=== PATIENT | male | born 1955 | race Caucasian/White ===

== ENCOUNTER 2017-05-27 17:37 | Emergency (ER) | payer SELFPAY ==
[~2017-05-27] VITALS: Ht 177.8 cm; Wt 99.3 kg
[~2017-05-27 17:37] MED LIST: ALBU8I INH; BENA25TA5 PO; PRIL20CA PO; ZOLO100T PO; ZOLP10TA3 PO
[2017-05-27 17:41] VITALS: BP 183/94; PULSE 52; RESP 16; TEMP 98.1; O2SAT 97
[2017-05-27] MEDS ORDERED: ZOLO25TA PO (18:18)
[2017-05-27] MEDS ORDERED: VENTAER INH (18:18)
[2017-05-27] MEDS ORDERED: IBUP200T PO (18:18)
[2017-05-27] MEDS ORDERED: LORA-392 PO (18:18)
[2017-05-27] MEDS ORDERED: OMEP2.5S (18:18)
[2017-05-27] MEDS ORDERED: AMBI5TAB PO (18:18)
[2017-05-27] MEDS ORDERED: SYMB80AE INH (18:18)
[2017-05-27] MEDS ORDERED: LISI2.5T3 PO (18:18)
[2017-05-27] MEDS ORDERED: LORazepam 2 MG TAB PO ONE (18:30)
[2017-05-27] MEDS ORDERED: CHLO25CA9 PO ×2 (18:38→18:40)
--- NOTE | 2017-05-27 18:38 | PD ---
HPI Chief Complaint: Anxiety Time Seen by Provider: 18:00 Travel History International Travel<30 days: No Contact w/Intl Traveler<30days: No Traveled to known affect area: No History of Present Illness HPI Patient is a fairly pleasant 61-year-old male presents with his sister whom he lives with for evaluation of anxiety and alcohol withdrawal. History is obtained in tandem from both him and his sister. Apparently the patient has a history of fairly heavy alcohol abuse in the past which is been supplemented with Ativan use occasionally. The patient is currently coping with the loss of his girlfriend in February and has been on binges intermittently of alcohol and benzodiazepines. Sister is concerned because she found him drinking heavily the other day and he hasn't had anything since in his been having some tremors. No altered mental status no fever has been reported. Patient states he feels well, he states is only having 1 or 2 beers intermittently. PFSH Past Medical History Asthma: Yes Anxiety: Yes Cancer: Yes (PROSTATE, SKIN) Cardiovascular Problems: Yes (MITRAL VALVE PROLAPSE) COPD: Yes Cerebrovascular Accident: Yes (TIA) Diabetes: Yes Patient Takes Glucophage: No Diminished Hearing: No GERD: Yes Hiatal Hernia: Yes Hypertension: Yes Musculoskeletal: Yes (L ROTATOR CUFF - NO SURGERY ) Respiratory: Yes (ASTHMA) Seizures: Yes (PT STATES DUE TO ALCOHOL AND ATIVAN WITHDRAW) Tetanus Vaccination: > 5 Years Influenza Vaccination: Yes (STATES APPROXIMATELY 3 YEARS AGO. ) Past Surgical History Cardiac Surgery: Yes (MVR, PACEMAKER INSERTION) Genitourinary Surgery: Yes (PROSTATECTOMY ) Pacemaker: Yes Thoracic Surgery: Yes Tonsillectomy: Yes Other Surgery: Yes Social History Alcohol Use: Yes (DRINKS LARGE QUANTIES DAILY - LIQUOR) Tobacco Use: No Substance Use: Yes (HX : MARIJUANA. HX : COCAINE USE ) Allergies-Medications (Allergen,Severity, Reaction): Coded Allergies: Sulfa (Sulfonamide Antibiotics) (Verified Allergy, Severe, 05/27/17) doxycycline (Verified Allergy, Severe, 05/27/17) oyster extract (Verified Allergy, Severe, 05/27/17) Reported Meds & Prescriptions Reported Meds & Active Scripts Active Chlordiazepoxide HCl 25 Mg Capsule 25 Mg PO DIRECTED 50mg PO TID for day 1-2 25mg PO TID for day 3-6 25mg PO BID for day 7-9 25mg PO daily for day 10-11 Reported Ibuprofen Pm (Ibuprofen-Diphenhydramine) 200-38 Mg Tab Unknown Dose PO HS PRN Symbicort Inh (Budesonide/Formoterol Fumarate) 80-4.5 Mcg/Act Aero Unknown Dose INH Q12HR Ventolin Hfa 18 GM Inh (Albuterol Sulfate) 90 Mcg/Act Aer Unknown Dose INH Q4H PRN Ambien (Zolpidem Tartrate) 5 Mg Tab Unknown Dose PO HS PRN Prilosec (Omeprazole Magnesium) 2.5 Mg Pow Unknown Dose Lisinopril 2.5 Mg Tab Unknown Dose PO DAILY Ativan (Lorazepam) 0.5 Mg Tab Unknown Dose PO DAILY PRN Zoloft (Sertraline HCl) 25 Mg Tab Unknown Dose PO DAILY Review of Systems Except as stated in HPI: all other systems reviewed are Neg Physical Exam Narrative GENERAL: [Well-developed well-nourished in no obvious distress SKIN: Focused skin assessment warm/dry. HEAD: Atraumatic. Normocephalic. EYES: Pupils equal and round. No scleral icterus. No injection or drainage. ENT: No nasal bleeding or discharge. Mucous membranes pink and moist. NECK: Trachea midline. No JVD. CARDIOVASCULAR: Regular rate and rhythm. No murmur appreciated. RESPIRATORY: No accessory muscle use. Clear to auscultation. Breath sounds equal bilaterally. GASTROINTESTINAL: Abdomen soft, non-tender, nondistended. Hepatic and splenic margins not palpable. MUSCULOSKELETAL: No obvious deformities. No clubbing. No cyanosis. No edema. NEUROLOGICAL: Awake and alert. No obvious cranial nerve deficits. Motor grossly within normal limits. Normal speech. Only a minimal tremor is observed. He is alert and awake and oriented. PSYCHIATRIC: Appropriate mood and affect; insight and judgment normal. Data Data Last Documented VS Vital Signs Date Time Temp Pulse Resp B/P (MAP) Pulse Ox O2 Delivery O2 Flow Rate FiO2 05/27/17 17:41 98.1 52 16 183/94 (123) 97 Orders Orders Lorazepam (Ativan) (05/27/17 18:30) Ed Discharge Order (05/27/17 18:38) MDM Medical Decision Making Medical Screen Exam Complete: Yes Emergency Medical Condition: Yes Differential Diagnosis Alcoholism, mild alcohol withdrawal, benzodiazepine withdrawal, adjustment disorder. Narrative Course Patient counseled at length, currently I think he is a good candidate for Librium withdrawal protocol to taper has been written for him. Discussed with him and his sister at length that he needs to follow up with [facility] her Alcoholics Anonymous. They're agreeable to this time. Also extremity conversation about him being on his last chance with her and I discussed with him that he needs to take this seriously do his best to get sober. Discussed return to ED criteria and symptomatic management home Diagnosis Primary Impression: Alcohol withdrawal Qualified Codes: F10.239 - Alcohol dependence with withdrawal, unspecified Additional Impression: Alcoholism Referrals: [facility]Other Pt SpecificInfo: Prescription(s) given Scripts Chlordiazepoxide HCl (Chlordiazepoxide HCl) 25 Mg Capsule 25 MG PO DIRECTED, #29 TAB 0 Refills 50mg PO TID for day 1-2 25mg PO TID for day 3-6 25mg PO BID for day 7-9 25mg PO daily for day 10-11 Prov: Los Garcia MD 05/27/17 Disposition: 01 DISCHARGE HOME Condition: Stable Los Garcia MD May 27, 2017 18:38
== END 2017-05-27 19:11 | disposition home or self-care (01) ==
LOC: PHEFT 17:37
DX: F10.239 Alcohol dependence with withdrawal, unspecified (principal)
CPT/HCPCS: 99283

== ENCOUNTER 2017-07-24 14:28 | Emergency (ER) | payer OTHER ==
[~2017-07-24] VITALS: Ht 177.8 cm; Wt 105.0 kg
[~2017-07-24 14:28] MED LIST changes: -ALBU8I INH; +AMBI5TAB PO; -BENA25TA5 PO; +CHLO25CA9 PO; +IBUP200T PO; +LISI2.5T3 PO; +LORA-392 PO; +OMEP2.5S; -PRIL20CA PO; +SYMB80AE INH; +VENTAER INH; -ZOLO100T PO; +ZOLO25TA PO; -ZOLP10TA3 PO
[2017-07-24 14:42] VITALS: BP 154/103; PULSE 101; RESP 23; TEMP 97.9; O2SAT 96
[2017-07-24] MEDS ORDERED: MORPHINE SULFATE 4 MG/ML INJ IM ONE (14:45)
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
[2017-07-24 16:13] VITALS: BP 162/82; PULSE 95; RESP 18; O2SAT 98
== END 2017-07-24 16:26 ==
LOC: NEPE 14:28
DX: T14.8XXA Other injury of unspecified body region, initial encounter (principal); M54.9 Dorsalgia, unspecified; J44.9 Chronic obstructive pulmonary disease, unspecified; E11.9 Type 2 diabetes mellitus without complications; I10 Essential (primary) hypertension; K21.9 Gastro-esophageal reflux disease without esophagitis; F12.90 Cannabis use, unspecified, uncomplicated; F14.90 Cocaine use, unspecified, uncomplicated; V49.49XA Driver injured in collision with other motor vehicles in traffic accident, initial encounter; Y92.410 Unspecified street and highway as the place of occurrence of the external cause; Z95.0 Presence of cardiac pacemaker; Z88.2 Allergy status to sulfonamides
CPT/HCPCS: 70450; 71045; 71120; 72072; 72100; 72125; 96372; 99285; J2270

== ENCOUNTER 2017-07-28 13:16 | Emergency (ER) | payer SELFPAY | END 2017-07-28 15:10 | disposition home or self-care (01) | LOC: PHED 13:16 | DX: F10.129 Alcohol abuse with intoxication, unspecified (principal); J44.9 Chronic obstructive pulmonary disease, unspecified; I10 Essential (primary) hypertension; E11.9 Type 2 diabetes mellitus without complications; K21.9 Gastro-esophageal reflux disease without esophagitis; F41.9 Anxiety disorder, unspecified; Z86.73 Personal history of transient ischemic attack (TIA), and cerebral infarction without residual deficits; Z85.46 Personal history of malignant neoplasm of prostate; Z85.828 Personal history of other malignant neoplasm of skin; Z95.0 Presence of cardiac pacemaker; Z88.2 Allergy status to sulfonamides; Z79.899 Other long term (current) drug therapy | CPT/HCPCS: 99283 ==

== ENCOUNTER 2017-10-15 16:38 | Emergency (ER) | payer OTHER ==
[~2017-10-15] VITALS: Ht 182.9 cm; Wt 100.0 kg
[2017-10-15] VITALS (7 sets, daily range): BP systolic 130–140; BP diastolic 69–95; PULSE 86–126; RESP 18–22; TEMP 98.5–98.6; O2SAT 95–98
[~2017-10-15 16:38] MED LIST changes: -CHLO25CA9 PO; -IBUP200T PO; -LISI2.5T3 PO; -LORA-392 PO
[2017-10-15] MEDS ORDERED: CLON0.1T PO (16:59)
[2017-10-15] MEDS ORDERED: SODIUM CHLORIDE 0.9% FLUSH 10 ML FLUSH IVF PRN (17:00)
[2017-10-15] MEDS ORDERED: ONDANSETRON HCL 4 MG/2 ML VIAL IV PUSH ONE (17:00)
[2017-10-15] MEDS ORDERED: LORazepam 2 MG/ML VIAL IV PUSH ONE ×2 (17:00→19:00)
[2017-10-15] MEDS ORDERED: SODIUM CHLOR 0.9% 1000 ML INJ 1,000 ML IV ONE ×2 (17:00→19:00)
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
[2017-10-15 17:28] LABS: AUTOMATED NEUTROPHIL # 7.7 TH/MM3 (1.8-7.7); BASOPHIL % 0.4 % (0.0-2.0); EOSINOPHIL # 0.1 TH/MM3 (0-0.4); HEMATOCRIT 50.6 % (39.0-51.0); HEMOGLOBIN 17.4 GM/DL (13.0-17.0); LYMPH % 10.7 % (9.0-44.0); MEAN CELL VOLUME 89.7 FL (80.0-100.0); MEAN CORPUSCULAR HEMOGLOBIN 30.8 PG (27.0-34.0); MEAN CORPUSCULAR HGB CONC 34.3 % (32.0-36.0); MEAN PLATELET VOLUME 7.1 FL (7.0-11.0); MONO % 7.9 % (0.0-8.0); MONOCYTE # 0.8 TH/MM3 (0-0.9); PLATELET COUNT 377 TH/MM3 (150-450); RED BLOOD COUNT 5.64 MIL/MM3 (4.50-5.90); RED CELL DISTRIBUTION WIDTH 14.2 % (11.6-17.2); WHITE BLOOD COUNT 9.6 TH/MM3 (4.0-11.0)
[2017-10-15 17:42] LABS: INTERNATIONAL NORMALIZED RATIO 1.1 RATIO; PROTHROMBIN TIME - PATIENT 10.9 SEC (9.8-11.6)
[2017-10-15 17:50] LABS: ALBUMIN 3.9 GM/DL (3.4-5.0); AST (GOT) 193 U/L (15-37); BICARBONATE 20.9 MEQ/L (21.0-32.0); BLOOD UREA NITROGEN 6 MG/DL (7-18); CALCIUM 9.1 MG/DL (8.5-10.1); CHLORIDE 101 MEQ/L (98-107); CREATININE 1.09 MG/DL (0.60-1.30); GLOMERULAR FILTRATION RATE 68 ML/MIN (>89); GLUCOSE,RANDOM 104 MG/DL (74-106); MAGNESIUM 2.1 MG/DL (1.5-2.5); SODIUM (NA) 136 MEQ/L (136-145)
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
[2017-10-15 17:56] LABS: ALKALINE PHOSPHATASE 177 U/L (45-117); ALT (GPT) 147 U/L (12-78); TOTAL BILIRUBIN ADULT 0.6 MG/DL (0.2-1.0); TOTAL PROTEIN 8.3 GM/DL (6.4-8.2); TROPONIN I 0.02 NG/ML (0.02-0.05)
[2017-10-15] MEDS ORDERED: FLUMAZENIL 0.5 MG/5 ML VIAL IV PUSH PRN (19:00)
[2017-10-15] MEDS ORDERED: LORazepam 2 MG TAB PO PRN (19:00)
[2017-10-15] MEDS ORDERED: ONDANSETRON HCL 4 MG/2 ML VIAL IV PUSH PRN (19:00)
[2017-10-15] MEDS ORDERED: LORazepam 2 MG/ML VIAL IV PUSH PRN ×4 (19:00)
[2017-10-15] MEDS ORDERED: ACETAMINOPHEN 325 MG TAB PO PRN (19:00)
[2017-10-15] MEDS ORDERED: LORazepam 1 MG TAB PO PRN (19:00)
[2017-10-15] MEDS ORDERED: IOHEXOL 350 MG/ML 10 ML VIAL (for RAD DIAG) IVCONTRAST ONE (20:52)
--- NOTE | 2017-10-15 21:16 | RADRPT ---
EXAM DATE/TIME: 10/15/2017 20:37 [facility] COMPARISON: No previous studies available for comparison. INDICATIONS : Chest pain. IV CONTRAST: 75 cc Omnipaque 350 (iohexol) IV RADIATION DOSE: 22.91 CTDIvol (mGy) MEDICAL HISTORY : Cardiovascular disease. Hypertension. Carcinoma, prostate.CVA. COPD. Skin cancer. SURGICAL HISTORY : Pacemaker. ENCOUNTER: Initial ACUITY: 1 day PAIN SCALE: 7/10 LOCATION: chest TECHNIQUE: Volumetric scanning of the chest was performed using a pulmonary embolism protocol MIP images were re constructed. Using automated exposure control and adjustment of the mA and/or kV according to patien t size, radiation dose was kept as low as reasonably achievable to obtain optimal diagnostic quality images. DICOM format image data is available electronically for review and comparison. Follow-up recommendations for detected pulmonary nodules are based at a minimum on nodule size and pa tient risk factors according to Fleischner Society Guidelines. FINDINGS: No filling defects to suggest pulmonary embolic disease. Postop median sternotomy with mitral valve a nnuloplasty. Pacer leads in right atrium and right ventricle. Clip noted in atrial appendage. There is subsegmental atelectasis or scarring at the lung bases. No effusion. Upper abdomen reveals f atty liver. No acute findings. CONCLUSION: 1. Negative for pulmonary embolus. Basal atelectasis or scarring. German Guan MD on October 15, 2017 at 21:08 Board Certified Radiologist. This report was verified electronically.
[2017-10-15] MEDS ORDERED: METOPROLOL TARTRATE 5 MG/5 ML VIAL IV PUSH ONE (21:30)
[2017-10-15] MEDS ORDERED: chlordiazePOXIDE 25 MG CAP PO ONE (22:30)
[2017-10-15] MEDS ORDERED: IBUPROFEN 600 MG TAB PO ONE (22:30)
[2017-10-16] MEDS ORDERED: chlordiazePOXIDE 25 MG CAP PO PRN ×3 (00:45→05:30)
[2017-10-16] MEDS ORDERED: LORazepam 2 MG/ML VIAL IV PUSH ONE (00:45)
[2017-10-16 03:53] VITALS: BP 163/91; PULSE 101; RESP 18; O2SAT 97
[2017-10-16] MEDS ORDERED: CHLO25CA9 PO (05:29)
--- NOTE | 2017-10-16 19:57 | EKG ---
Date Performed: 10/15/2017 Time Performed: 17:16:08 PTAGE: 62 years EKG: ELECTRONIC VENTRICULAR PACEMAKER Compared to previous tracing, the rhythm appears to be mos tly paced. The underlying rhythm is unclear. There also appears to be PVCs. Recommend repeat EKG at a slower HR and probably pacemaker interrogation ABNORMAL RHYTHM ECG PREVIOUS TRACING : 02/02/2016 13.29 DOCTOR: Valdemar Casarez Interpretating Date/Time 10/16/2017 19:56:13
== END 2017-10-16 06:20 | disposition home or self-care (01) ==
LOC: NEPE 16:38
DX: F10.239 Alcohol dependence with withdrawal, unspecified (principal); R07.9 Chest pain, unspecified; R11.0 Nausea; R06.02 Shortness of breath; R25.1 Tremor, unspecified; R94.31 Abnormal electrocardiogram [ECG] [EKG]; F43.10 Post-traumatic stress disorder, unspecified; Z95.0 Presence of cardiac pacemaker; Z79.899 Other long term (current) drug therapy
CPT/HCPCS: 71045; 71275; 80053; 80307; 82550; 83690; 83735; 84484; 85025; 85610; 85730; 93005; 96361; 96374; 96375; 96376; 99285; J2060; J2405; J7030; Q9967

== ENCOUNTER 2018-03-02 13:45 | Observation (INO) ==
--- NOTE | 2018-03-02 14:21 | ED ---
HPI General Chief Complaint: Fall Stated Complaint: Fall Time Seen by Provider: 03/02/18 14:03 Source: patient Mode of arrival: ambulatory Limitations: no limitations History of Present Illness HPI Narrative: 62-year-old male presents to the emergency room for evaluation of headache, shoulder pain, and back pain after mechanical fall just prior to arrival. Patient states he was walking up the stairs to his apartment when the stairs broke and he fell backwards 2 steps. States he just lost his balance but he did not fall down. He slammed his left shoulder against the wall and was able to stay upright. Patient states his left shoulder is chronically in pain from a rotator cuff injury several years ago. States this is an exacerbation of the same pain. Pain is worsened with range of motion or when he pushes on the area. Improves at rest. He may have also hit his head. He denies loss of consciousness. States he continued up the stairs and went to his house and drink 2 alcoholic beverages to help ease the pain. He then called 911. Patient arrived in C-spine immobilization on a backboard. He denies any upper or lower extremity paresthesias, saddle anesthesia, loss of bowel or bladder control. Denies any chest pain or any other injuries. Patient is not the best historian and he has alcohol on his breath. MD complaint: fall Onset (ago): hour(s) Fall from: down stairs (#) (2) Fall witnessed: no Place fall occurred: home Loss of consciousness: none Prolonged down time: no Symptoms prior to fall: none Context: tripped/slipped Location of injury: head and back Location of injury - extremities: Left: shoulder Severity: moderate Quality: aching Associated symptoms (after fall): headache and neck pain Related Data Home Medications Medication Instructions Recorded Confirmed clonidine HCl 0.1 mg PO TID 02/04/18 03/02/18 sertraline [Zoloft] 100 mg PO DAILY 02/04/18 03/02/18 zolpidem [Ambien] 10 mg PO HS 02/04/18 03/02/18 Allergies Allergy/AdvReac Type Severity Reaction Status Date / Time doxycycline Allergy Severe Vomiting Verified 03/02/18 20:25 oyster extract Allergy Severe Vomiting Verified 03/02/18 20:25 Sulfa (Sulfonamide Allergy Severe Difficulty Verified 03/02/18 20:25 Antibiotics) Breathing Review of Systems ROS: all other systems reviewed are negative PMF Family History Family History Mother Lung cancer Father Stomach cancer Social History Social History Substance History: No History of Abuse Second Hand Smoke Exposure: No Smoking Status: Unknown if ever smoked How Often Do You Have a Drink Containing Alcohol: 2 to 3 times a week Recent Travel in [facility] within the Last 8 Weeks: No Recent Out of Country Travel within the Last 8 Weeks: No Exam Narrative Exam Narrative: GENERAL: Well-nourished, well-developed male in no acute distress. Afebrile. Ambulatory. Smell of alcohol on his breath. SKIN: Focused skin assessment warm/dry. HEAD: Normocephalic. EYES: No scleral icterus. No injection or drainage. NECK: Supple, trachea midline. No JVD or lymphadenopathy. No midline tenderness. Full range of motion. CARDIOVASCULAR: Regular rate and rhythm without murmurs, gallops, or rubs. RESPIRATORY: Breath sounds equal bilaterally. No accessory muscle use. MUSCULOSKELETAL: No cyanosis, or edema. BACK: Mild midline tenderness of the upper back. No obvious deformity. No CVA tenderness. NEUROLOGICAL: Awake and alert. Cranial nerves II through XII intact. Motor and sensory grossly within normal limits. Five out of 5 muscle strength in all muscle groups. Normal speech. Course Initial Documented Vital Signs Temperature 98.3 F 03/02/18 14:02 Pulse Rate 118 H 03/02/18 14:02 Respiratory Rate 19 03/02/18 14:02 Blood Pressure 156/94 H 03/02/18 14:02 Pulse Oximetry 94 L 03/02/18 14:02 Last Documented Vital Signs Temperature 98.1 F 03/02/18 16:19 Pulse Rate 99 H 03/03/18 00:00 Respiratory Rate 20 03/03/18 00:00 Blood Pressure 141/75 H 03/03/18 00:00 Pulse Oximetry 97 03/03/18 00:00 Sign Out Sign Out Data: Patient Sign Out occurred on 03/02/18 at 20:15. Patient's care was discussed, and care was transferred from JOVANY Kendall to Patricia Browning DO. Sign Out Comment: pending labs, patient likely be admitted. Last updated by Alice Mendez PA at 03/02/18 19:09 Post-Handoff Eval: Please see my RAKESH attestation for further details. Medical Decision Making RAKESH Attestation RAKESH supervised visit: Yes Attestation: I, Dr. Browning, have reviewed the advance practice practitioner's documentation and am in agreement, met with the patient face to face, made the diagnosis, and the medical decision making was done by me. *My assessment and Findings: ICH vs. fracture vs. contusion vs. alcohol withdrawal vs. anxiety 62yo M with chronic alcohol abuse here with c/o left shoulder pain and head pain s/p fall today. Said he was walking up stairs and the step broke and he fell. Said he did have some alcohol today, cannot remember the details. Pt has left rotator cuff tear before. Denies any focal weakness or numbness. Has chronic left knee pain since July and denies it before worst than normal. It is mildly warm to touch but good range of motion in left knee. Pt was tachycardic and mildly tremulous so given ativan 1mg IV. Pt reevaluated at bedside and is still tachycardic at 117bpm and mildly tremulous in bilateral upper extremities and has some tongue fasciculations. Labs ordered and pt given NS IVF and second dose of ativan 1mg IV. Pt did hit his head and had questionable LOC. CT brain showed no acute process. Xray left shoulder showed degenerative changes, no fracture. At around 5:55pm, pt was noted to be tachycardic in the 200s with pulse oximetry so placed pt on cardiac monitoring. Then pt's heart rate went down on its own and was bradycardic and then normal. EKG was obtained and showed paced rhythm at 112bpm. No concordance. Pt complaining of dizziness. Said he had mitrol valve repair and pace maker. [employer] is Dr. Clemons. Pacemaker by [employer] was implanted by Dr. Clemons in 2015 but unable to review old records. [employer] called to interrogate pacemaker. Given pt's persistent dizziness and arrhythmia, will observe patient. [employer] came to evaluate the patient and said that it is his [place] beats that is tachycardic and that the pace maker will go up to 130. Said that they did not see any tachycardia in the 200s but our monitor may have picked up atrial beats and double counted it. Labs reviewed, no leukocytosis. H/H normal. BMP unremarkable. Blood alcohol mildly elevated at 163. CXR negative. Pt reevaluated at bedside and HR is in the low 100s. Still have headache and dizziness. Ordered toradol. Pt still with dizziness and mild tachycardia after 2 doses of IV ativan and NS IVF so will observe for alcohol withdrawal. Pt has had alcohol withdrawal seizures before. MDM Narrative Medical decision making narrative: 62-year-old chronic alcoholic presents to the emergency room for evaluation of mechanical fall that occurred just prior to arrival. Patient states he slipped on 2 steps going upstairs and fell backwards but did not actually lose his balance and fell down. Instead he struck his left shoulder against the wall. Reports acute exacerbation of chronic left shoulder pain that is worse with movement and when he pushes on it. Denies any chest pain. He thinks he may have struck his head against the wall but denies loss of consciousness. States he continued up the stairs and drink some alcohol to help with the pain before calling 911. Physical exam is reassuring. Patient is resting comfortably. He is ambulatory. No paresthesias or focal neurological deficits. Given her alcohol consumption, CT the brain is ordered which is negative. His biggest complaint was left shoulder pain. X-ray of the left shoulder only shows degenerative findings. Patient was noted to tachycardic on reexamination of heart rate with a pulse-ox reading in the mid to high 200s. Patient was placed on cardiac telemetry and IV access was established. Basic labs were drawn. I called [facility] to get interrogation of his pacemaker. Reports shows several runs of V. tach over the past several weeks but none today and no heart rate in the 250's. At this time care was transferred to my attending physician. She will take over patient's care and disposition. Medical Screen Exam Complete: Yes Emergency Medical Condition: Yes Differential Diagnosis Differential Diagnosis: Mechanical fall, cervical strain, head injury, shoulder injury Lab Data Result diagrams: 03/03/18 06:30 03/02/18 19:02 Lab Results 03/02/18 03/02/18 03/02/18 Range/Units 17:37 17:37 19:02 WBC 6.9 (4.0-11.0) th/mm3 RBC 4.88 (4.50-5.90) mil/mm3 Hgb 15.3 (13.0-17.0) gm/dL Hct 43.8 (39.0-51.0) % MCV 89.7 (80.0-100.0) fL MCH 31.3 (27.0-34.0) pg MCHC 34.8 (32.0-36.0) % RDW 13.2 (11.6-17.2) % Plt Count 449 (150-450) th/mm3 MPV 6.3 L (7.0-11.0) fL Neut % (Auto) 73.7 H (16.0-70.0) % Lymph % (Auto) 14.7 (9.0-44.0) % Crowley % (Auto) 6.9 (0.0-8.0) % Eos % (Auto) 4.1 H (0.0-4.0) % Baso % (Auto) 0.6 (0.0-2.0) % Neut # (Auto) 5.1 (1.8-7.7) th/mm3 Lymph # (Auto) 1.0 (1.0-4.8) th/mm3 Crowley # (Auto) 0.5 (0.0-0.9) th/mm3 Eos # (Auto) 0.3 (0.0-0.4) th/mm3 Baso # (Auto) 0.0 (0.0-0.2) th/mm3 WBC Differential . Differential Comment Auto diff final PT (9.8-11.6) sec INR Ratio APTT (24.3-30.1) sec Sodium 143 140 (136-145) meq/L Potassium 4.1 4.3 (3.5-5.1) meq/L Chloride 106 104 (98-107) meq/L Carbon Dioxide 26.5 24.7 (21.0-32.0) meq/L Anion Gap 11 11 (5-15) meq/L BUN 9 9 (7-18) mg/dL Creatinine 0.81 0.79 (0.60-1.30) mg/dL Estimated GFR Greater than 89 Greater than 89 (>89) mL/min Random Glucose 116 H 134 H (74-106) mg/dL Calcium 8.1 L 8.3 L (8.5-10.1) mg/dL Magnesium (1.5-2.5) mg/dL Total Bilirubin 0.2 (0.2-1.0) mg/dL AST 49 H (15-37) U/L ALT 50 (12-78) U/L Alkaline Phosphatase 93 (45-117) U/L Total Creatine Kinase (39-308) U/L Troponin I 0.03 (0.02-0.05) ng/mL Total Protein 7.2 (6.4-8.2) g/dL Albumin 3.3 L (3.4-5.0) g/dL Serum Alcohol 163 H (0-5) mg/dL 03/02/18 03/02/18 03/03/18 Range/Units 19:02 19:02 06:30 WBC 6.5 (4.0-11.0) th/mm3 RBC 4.70 (4.50-5.90) mil/mm3 Hgb 14.6 (13.0-17.0) gm/dL Hct 41.7 (39.0-51.0) % MCV 88.7 (80.0-100.0) fL MCH 31.0 (27.0-34.0) pg MCHC 35.0 (32.0-36.0) % RDW 13.5 (11.6-17.2) % Plt Count 381 (150-450) th/mm3 MPV 6.5 L (7.0-11.0) fL Neut % (Auto) 72.4 H (16.0-70.0) % Lymph % (Auto) 13.6 (9.0-44.0) % Crowley % (Auto) 9.0 H (0.0-8.0) % Eos % (Auto) 3.9 (0.0-4.0) % Baso % (Auto) 1.1 (0.0-2.0) % Neut # (Auto) 4.7 (1.8-7.7) th/mm3 Lymph # (Auto) 0.9 L (1.0-4.8) th/mm3 Crowley # (Auto) 0.6 (0.0-0.9) th/mm3 Eos # (Auto) 0.3 (0.0-0.4) th/mm3 Baso # (Auto) 0.1 (0.0-0.2) th/mm3 WBC Differential . Differential Comment Auto diff final PT 10.5 (9.8-11.6) sec INR 1.0 Ratio APTT 26.4 (24.3-30.1) sec Sodium (136-145) meq/L Potassium (3.5-5.1) meq/L Chloride (98-107) meq/L Carbon Dioxide (21.0-32.0) meq/L Anion Gap (5-15) meq/L BUN (7-18) mg/dL Creatinine (0.60-1.30) mg/dL Estimated GFR (>89) mL/min Random Glucose (74-106) mg/dL Calcium (8.5-10.1) mg/dL Magnesium 2.0 (1.5-2.5) mg/dL Total Bilirubin (0.2-1.0) mg/dL AST (15-37) U/L ALT (12-78) U/L Alkaline Phosphatase (45-117) U/L Total Creatine Kinase 96 (39-308) U/L Troponin I (0.02-0.05) ng/mL Total Protein (6.4-8.2) g/dL Albumin (3.4-5.0) g/dL Serum Alcohol (0-5) mg/dL Imaging Data Radiologist's impression: Head CT 03/02/18 14:17 CONCLUSION: 1. Negative for an acute process . Shoulder X-Ray 03/02/18 14:17 CONCLUSION: Degenerative changes, no fracture. Chest X-Ray 03/02/18 17:55 CONCLUSION: No acute cardiopulmonary process seen. ECG Data EKG Prior to Arrival: No Attestation: I personally reviewed and interpreted this ECG as follows: Interpretation: Paced rhythm at 112bpm. LAD. No concordance. Discharge Plan Discharge Disposition Patient Disposition: 30 Still Patient Discharge Condition Condition: Stable Physicians Team ED Provider: Patricia Browning Primary Care Provider: Gregory Hamm Attending Provider: Franklin Narayan Discharge Interventions Interventions: Vital Signs Last Done: 03/02/18 16:19 Status ED Status: Admitted Observation Patient
--- NOTE | 2018-03-02 15:24 | XR ---
EXAM DATE: 03/02/2018 2:44 PM EDT AGE/SEX: 62 years / Male INDICATIONS: Left shoulder pain; fall down stairs today. CLINICAL DATA: This is the patient's subsequent encounter. Patient reports that signs and symptoms h ave been present for 1 day and indicates a pain score of 5/10. MEDICAL/SURGICAL HISTORY: None. None. COMPARISON: No prior exams available for comparison. FINDINGS: Degenerative changes at the AC joint. Pacer on the left. Anatomic alignment. No fracture. CONCLUSION: Degenerative changes, no fracture. Electronically signed by: Franklin Powell MD 03/02/2018 3:22 PM EDT
--- NOTE | 2018-03-02 15:43 | CT ---
EXAM DATE: 03/02/2018 3:33 PM EDT AGE/SEX: 62 years / Male INDICATIONS: Trauma, fell down stairs. CLINICAL DATA: This is the patient's initial encounter. Patient reports that signs and symptoms have been present for 1 day and indicates a pain score of 4/10. MEDICAL/SURGICAL HISTORY: Cardiovascular disease. Hypertension. Carcinoma, prostatic. CABG. Tons illectomy. RADIATION DOSE: 43.06 CTDI (mGy) COMPARISON: [facility] [place], CT BRAIN W/O CONTRAST, 07/24/2017. . TECHNIQUE: CT of the head without contrast. Using automated exposure control and adjustment of the mA and/or kV according to patient size, radiation dose was kept as low as reasonably achievable to ob tain optimal diagnostic quality images. DICOM format image data is available electronically for revi ew and comparison. FINDINGS: Cerebrum: The ventricles are normal for age. No evidence of midline shift, mass lesion, hemorrhage or acute infarction. No extraaxial fluid collections are seen. Posterior Fossa: The cerebellum and brainstem are intact. The 4th ventricle is midline. The cerebe llopontine angle is unremarkable. Extracranial: The visualized portion of the orbits is intact. Skull: The calvaria is intact. No evidence of skull fracture. CONCLUSION: 1. Negative for an acute process . Electronically signed by: Franklin Powell MD 03/02/2018 3:42 PM EDT
[2018-03-02] MEDS ORDERED: Sod Chloride 0.9% Inj 1,000 ML IV.SIG SCH (16:30)
[2018-03-02] MEDS ORDERED: Acetaminophen 325 MG Tablet PO ONE (17:51)
[2018-03-02 18:06] LABS: Baso % (Auto) 0.6 % (0.0-2.0); Eos # (Auto) 0.3 th/mm3 (0.0-0.4); Eos % (Auto) 4.1 % (0.0-4.0); Hematocrit 43.8 % (39.0-51.0); Hemoglobin 15.3 gm/dL (13.0-17.0); Lymph % (Auto) 14.7 % (9.0-44.0); Mean Corpuscular HGB Conc 34.8 % (32.0-36.0); Mean Corpuscular Hemoglobin 31.3 pg (27.0-34.0); Mean Corpuscular Volume 89.7 fL (80.0-100.0); Mean Platelet Volume 6.3 fL (7.0-11.0); Mono # (Auto) 0.5 th/mm3 (0.0-0.9); Mono % (Auto) 6.9 % (0.0-8.0); Neut # (Auto) 5.1 th/mm3 (1.8-7.7); Neut % (Auto) 73.7 % (16.0-70.0); Platelet Count 449 th/mm3 (150-450); Red Blood Count 4.88 mil/mm3 (4.50-5.90); Red Cell Distribution Width 13.2 % (11.6-17.2); White Blood Count 6.9 th/mm3 (4.0-11.0)
[2018-03-02 18:23] LABS: Anion Gap 11 meq/L (5-15); Blood Urea Nitrogen 9 mg/dL (7-18); Calcium 8.1 mg/dL (8.5-10.1); Carbon Dioxide 26.5 meq/L (21.0-32.0); Chloride 106 meq/L (98-107); Glomerular Filtration Rate Greater Than 89 mL/min (>89); Glucose,Random 116 mg/dL (74-106); Potassium 4.1 meq/L (3.5-5.1); Sodium 143 meq/L (136-145)
[2018-03-02 18:32] LABS: Alcohol 163 mg/dL (0-5)
--- NOTE | 2018-03-02 18:35 | XR ---
EXAM DATE: 03/02/2018 6:14 PM EDT AGE/SEX: 62 years / Male INDICATIONS: Chest pain. CLINICAL DATA: This is the patient's initial encounter. Patient reports that signs and symptoms have been present for 1 day and indicates a pain score of 2/10. MEDICAL/SURGICAL HISTORY: Asthma. Chronic obstructive pulmonary disease. Carcinoma, prostatic . Pacemaker. COMPAR[place]: [facility] [place], 10/15/2017. . FINDINGS: There is a pacing device seen in the left chest. The patient is status post sternotomy. There is a cl osure device seen over the left atrial appendage. The heart size is upper limits of normal for size. The lungs are grossly clear. CONCLUSION: No acute cardiopulmonary process seen. Electronically signed by: Gregory Hull MD 03/02/2018 6:33 PM EDT
[2018-03-02 19:32] LABS: Activated Partial Thrombo Time 26.4 sec (24.3-30.1); Prothrombin Time 10.5 sec (9.8-11.6)
[2018-03-02 19:37] LABS: Alanine Aminotransferase 50 U/L (12-78); Albumin 3.3 g/dL (3.4-5.0); Anion Gap 11 meq/L (5-15); Aspartate Aminotransferase 49 U/L (15-37); Blood Urea Nitrogen 9 mg/dL (7-18); Calcium 8.3 mg/dL (8.5-10.1); Carbon Dioxide 24.7 meq/L (21.0-32.0); Chloride 104 meq/L (98-107); Glomerular Filtration Rate Greater Than 89 mL/min (>89); Glucose,Random 134 mg/dL (74-106); Sodium 140 meq/L (136-145)
[2018-03-02 19:39] LABS: Potassium 4.3 meq/L (3.5-5.1)
[2018-03-02 19:41] LABS: Alkaline Phosphatase 93 U/L (45-117); Total Protein 7.2 g/dL (6.4-8.2); Troponin I 0.03 ng/mL (0.02-0.05)
[2018-03-02] MEDS ORDERED: Ketorolac Inj 30 MG/ML (IVP) Vial IV.PUSH ONE (20:03)
[2018-03-02] MEDS ORDERED: Haloperidol Inj 5 MG/ML Ampul IV.PUSH PRN (20:31)
[2018-03-02] MEDS ORDERED: Bisacodyl 10 MG Supp RECTAL PRN (20:32)
--- NOTE | 2018-03-02 23:35 | P.HPIM ---
History of Present Illness Primary Care Physician: Gregory Hamm DO History of Present Illness: 62-year-old malel with a history of heavy alcohol use, alcohol withdrawal, hypertension, depression, heart block with pacer who presents with mechanical fall while walking up the steps tonight at his house. He says he was carrying a box of clothes, and was walking up the steps when he tripped on the step. The closed broke his fall, however he does have a subsequent headache and mechanical left shoulder pain since this fall. He denies any chest pain or shortness of breath. He denies any loss of consciousness. He is not sure if he hit his head, however does have a annie on his forehead which appears to be from hitting a stairway. Patient reports a dull all over headache. Alcohol level 160s on admission. Review of Systems All other systems reviewed negative except as stated in HPI [facility] - History History Provided By: Patient - Medical History Medical History: Medical History (Last Reviewed 03/02/18 @ 14:13 by Raquel Washington) High cholesterol (Acute) Hypertension (Acute) Asthma (Acute) COPD (chronic obstructive pulmonary disease) (Acute) Anxiety (Acute) PTSD (post-traumatic stress disorder) (Acute) Pacemaker Prostate CA - Surgical History Surgical History: Surgical History (Last Reviewed 03/02/18 @ 14:13 by Raquel Washington) S/P CABG (coronary artery bypass graft) S/P mitral valve replacement S/P tonsillectomy and adenoidectomy - Family History Family History: Family History (Last Updated 03/02/18 @ 23:29 by Jose Ramirez MD) Mother Lung cancer Father Stomach cancer - Tobacco History Second Hand Smoke Exposure: No Smoking Status: Unknown if ever smoked - Alcohol History How Often Do You Have a Drink Containing Alcohol: 2 to 3 times a week - Substance Use History Substance History: No History of Abuse - Travel History Recent Travel in the [place] Within the Last 8 Weeks: No Recent Travel Out of the Country Within the Last 8 Weeks: No - Immunization History Tetanus Immunization: Unsure Medications and Allergies Active Medications: Active Medications Al Hydroxide/Mg Hydroxide (Milk Of Magnesia Liq) 30 ml PO Q12H PRN PRN Reason: Mild Constipation Bisacodyl (Dulcolax Supp) 10 mg RECTAL DAILY PRN PRN Reason: SEVERE CONSITIPATION Clonidine HCl (Catapres) 0.1 mg PO TID [facility] Last Admin: 03/02/18 22:46 Dose: 0.1 mg Flumazenil (Romazecon Inj) 0.2 mg IV.PUSH Q1M PRN PRN Reason: OVERSEDATION Haloperidol Lactate (Haldol Inj) 1 mg IV.PUSH Q15M PRN PRN Reason: for severe agitation Sodium Chloride (Ns Inj) 1,000 mls @ 0 mls/hr IV.SIG BOLUS [facility] Last Admin: 03/02/18 16:49 Dose: 1,000 mls/hr Lactulose (Lactulose Liq) 30 ml PO DAILY PRN PRN Reason: SEVERE CONSITIPATION Lorazepam (Ativan) 1 mg PO Q4H PRN PRN Reason: for CIWA 8-10 Lorazepam (Ativan) 2 mg PO Q2H PRN PRN Reason: for CIWA 11-14 Lorazepam (Ativan Inj) 2 mg IV.PUSH Q2H PRN PRN Reason: for CIWA 11-14 Lorazepam (Ativan Inj) 2 mg IV.PUSH Q1H PRN PRN Reason: for CIWA 15-20 Lorazepam (Ativan Inj) 1 mg IV.PUSH Q4H PRN PRN Reason: for CIWA 8-10 Last Admin: 03/02/18 22:46 Dose: 1 mg Lorazepam (Ativan Inj) 2 mg IV.PUSH Q15M PRN PRN Reason: for CIWA > 20 Sennosides (Senokot) 17.2 mg PO Q12H PRN PRN Reason: Moderate Constipation Sertraline HCl (Zoloft) 100 mg PO DAILY [facility] Zolpidem Tartrate (Ambien) 10 mg PO [facility] Allergies Allergy/AdvReac Type Severity Reaction Status Date / Time doxycycline Allergy Severe Vomiting Verified 03/02/18 20:25 oyster extract Allergy Severe Vomiting Verified 03/02/18 20:25 Sulfa (Sulfonamide Allergy Severe Difficulty Verified 03/02/18 20:25 Antibiotics) Breathing Home Medications Medication Instructions Recorded Confirmed Type clonidine HCl 0.1 mg PO TID 02/04/18 03/02/18 History sertraline [Zoloft] 100 mg PO DAILY 02/04/18 03/02/18 History zolpidem [Ambien] 10 mg PO HS 02/04/18 03/02/18 History Exam Vital signs: Vital Signs 03/02/18 14:02 03/02/18 16:19 03/02/18 19:01 Temperature 98.3 F 98.1 F Pulse Rate 118 H 110 H 111 H Respiratory Rate 18 18 Blood Pressure 156/94 H 117/56 L 158/93 H Pulse Oximetry 94 L 99 99 03/02/18 20:20 03/02/18 20:32 03/02/18 22:40 Temperature Pulse Rate 99 H 104 H Respiratory Rate 20 20 Blood Pressure 157/100 H 174/109 H Pulse Oximetry 98 98 98 Intake & Output 03/02/18 03/02/18 03/03/18 06:59 18:59 06:59 Weight 108.862 kg Narrative: GENERAL: Patient sitting up in bed. Appears comfortable. SKIN: Warm and dry. HEAD: Atraumatic. Normocephalic. EYES: Pupils equal and round. No scleral icterus. No injection or drainage. ENT: No nasal bleeding or discharge. Mucous membranes pink and moist. NECK: Trachea midline. No JVD. CARDIOVASCULAR: Regular rate and rhythm. RESPIRATORY: No accessory muscle use. Clear to auscultation. Breath sounds equal bilaterally. GASTROINTESTINAL: Abdomen soft, non-tender, nondistended. Hepatic and splenic margins not palpable. MUSCULOSKELETAL: Extremities without clubbing, cyanosis, or edema. No obvious deformities. Patient has white annie across his forehead at an angle which appears to be paint or some other substance from the edge of a step. No surrounding erythema or bruising. No broken skin .pain with movement of left shoulder. NEUROLOGICAL: Awake and alert. No obvious cranial nerve deficits. Motor grossly within normal limits. Five out of 5 muscle strength in the arms and legs. Normal speech. Patient does have resting tremor bilateral upper extremities. PSYCHIATRIC: Appropriate mood and affect; insight and judgment normal. Results - Labs CBC & Chem 7: 03/02/18 17:37 03/02/18 19:02 Labs: Short CBC 03/02/18 Range/Units 17:37 WBC 6.9 (4.0-11.0) th/mm3 Hgb 15.3 (13.0-17.0) gm/dL Hct 43.8 (39.0-51.0) % Plt Count 449 (150-450) th/mm3 BMP 03/02/18 03/02/18 17:37 19:02 Sodium 143 140 Potassium 4.1 4.3 Chloride 106 104 Carbon Dioxide 26.5 24.7 BUN 9 9 Creatinine 0.81 0.79 Calcium 8.1 L 8.3 L Cardiac Enzymes 03/02/18 03/02/18 Range/Units 19:02 19:02 Total Creatine Kinase 96 (39-308) U/L Troponin I 0.03 (0.02-0.05) ng/mL Liver Function 03/02/18 Range/Units 19:02 Total Bilirubin 0.2 (0.2-1.0) mg/dL AST 49 H (15-37) U/L ALT 50 (12-78) U/L Alkaline Phosphatase 93 (45-117) U/L Albumin 3.3 L (3.4-5.0) g/dL - Imaging Impressions Head CT 03/02/18 14:17 CONCLUSION: 1. Negative for an acute process . Shoulder X-Ray 03/02/18 14:17 CONCLUSION: Degenerative changes, no fracture. Chest X-Ray 03/02/18 17:55 CONCLUSION: No acute cardiopulmonary process seen. Caprini VTE Risk Assessment Caprini VTE Risk Assessment: Moderate/High Risk (score >= 2) Caprini Risk Assessment Model: Point Value = 1 Point Value = 2 Point Value = 3 Point Value = 5 Age 41-60 Minor surgery BMI > 25 kg/m2 Swollen legs Varicose veins or History of unexplained or recurrent spontaneous Oral contraceptives or hormone replacement Sepsis (< 1 month) Serious lung disease, including pneumonia (< 1 month) Abnormal pulmonary function Acute myocardial infarction Congestive heart failure (< 1 month) History of inflammatory bowel disease Medical patient at bed rest Age 61-74 Arthroscopic surgery Major open surgery (> 45 min) Laparoscopic surgery (> 45 min) Malignancy Confined to bed (> 72 hours) Immobilizing plaster cast Central venous access Age >= 75 History of VTE Family history of VTE Factor V Leiden Prothrombin [id number] Lupus anticoagulant Anticardiolipin antibodies Elevated serum homocysteine Heparin-induced thrombocytopenia Other congenital or acquired thrombophilia Stroke (< 1 month) Elective arthroplasty Hip, pelvis, or leg fracture Acute spinal cord injury (< 1 month) Prophylaxis Regimen: Total Risk Factor Score Risk Level Prophylaxis Regimen 0-1 Low Early ambulation 2 Moderate Order ONE of the following: *Sequential Compression Device (SCD) *Heparin 5000 units SQ BID 3-4 Higher Order ONE of the following medications: *Heparin 5000 units SQ TID *Enoxaparin/Lovenox 40 mg SQ daily (WT < 150 kg, CrCl > 30 mL/min) *Enoxaparin/Lovenox 30 mg SQ daily (WT < 150 kg, CrCl > 10-29 mL/min) *Enoxaparin/Lovenox 30 mg SQ BID (WT < 150 kg, CrCl > 30 mL/min) AND/OR *Sequential Compression Device (SCD) 5 or more Highest Order ONE of the following medications: *Heparin 5000 units SQ TID (Preferred with Epidurals) *Enoxaparin/Lovenox 40 mg SQ daily (WT < 150 kg, CrCl > 30 mL/min) *Enoxaparin/Lovenox 30 mg SQ daily (WT < 150 kg, CrCl > 10-29 mL/min) *Enoxaparin/Lovenox 30 mg SQ BID (WT < 150 kg, CrCl > 30 mL/min) AND *Sequential Compression Device (SCD) Assessment and Plan - Plan //Status post mechanical fall //Left shoulder pain. Likely secondary to alcohol CT head on admission negative for acute process. The patient does have a annie on his forehead where he likely hit the steps. No evidence of syncope. Patient's pacer was interrogated with no arrhythmia noted. = Patient will need to follow-up with primary care for left shoulder pain which is likely rotator cuff injury. //Hypertension Blood pressures currently in the 170s. Will start back on clonidine. CIWA protocol as below. Continue to monitor. //Alcohol withdrawal With tachycardia, hypertension. Bilateral shakes on exam. -We will start CIWA protocol, thiamine. //Depression. Chronic. No SI. Continue home medication. //Sinus tachycardia Tachycardia could be secondary to missing his clonidine since this morning. Will restart clonidine. Discussed Condition With: Patient, nurse, ED physician.
[2018-03-03 00:56] VITALS: O2SAT 97
[2018-03-03] MEDS: LORazepam 1 MG Tablet PO PRN ×2 (01:20→04:17)
[2018-03-03 07:09] LABS: Baso # (Auto) 0.1 th/mm3 (0.0-0.2); Baso % (Auto) 1.1 % (0.0-2.0); Eos # (Auto) 0.3 th/mm3 (0.0-0.4); Eos % (Auto) 3.9 % (0.0-4.0); Hematocrit 41.7 % (39.0-51.0); Hemoglobin 14.6 gm/dL (13.0-17.0); Lymph # (Auto) 0.9 th/mm3 (1.0-4.8); Lymph % (Auto) 13.6 % (9.0-44.0); Mean Corpuscular Volume 88.7 fL (80.0-100.0); Mean Platelet Volume 6.5 fL (7.0-11.0); Mono # (Auto) 0.6 th/mm3 (0.0-0.9); Neut # (Auto) 4.7 th/mm3 (1.8-7.7); Neut % (Auto) 72.4 % (16.0-70.0); Platelet Count 381 th/mm3 (150-450); Red Cell Distribution Width 13.5 % (11.6-17.2); White Blood Count 6.5 th/mm3 (4.0-11.0)
[2018-03-03 07:30] LABS: Albumin 3.3 g/dL (3.4-5.0); Anion Gap 8 meq/L (5-15); Aspartate Aminotransferase 39 U/L (15-37); Blood Urea Nitrogen 10 mg/dL (7-18); Calcium 8.5 mg/dL (8.5-10.1); Carbon Dioxide 26.8 meq/L (21.0-32.0); Chloride 105 meq/L (98-107); Glomerular Filtration Rate Greater Than 89 mL/min (>89); Glucose,Random 91 mg/dL (74-106); Potassium 3.9 meq/L (3.5-5.1); Sodium 140 meq/L (136-145)
[2018-03-03 07:34] LABS: Alanine Aminotransferase 43 U/L (12-78); Alkaline Phosphatase 89 U/L (45-117); Total Protein 6.7 g/dL (6.4-8.2)
[2018-03-03 08:41] VITALS: RESP 19
[2018-03-03] MEDS ORDERED: Sertraline 100 MG Tablet PO SCH (09:00)
--- NOTE | 2018-03-03 11:22 | P.PN ---
Subjective Interval history: Follow-up visit status post fall, EtOH. Patient seen and examined today. Patient reports he is doing well. Discomfort on the left shoulder however states that he had rotator cuff surgery before by Dr. Ugarte and this is been an ongoing thing even before admission. Reports minimal shaking. Denies SOB/ dyspnea. Denies chest pain, palpitations, headaches, dizziness. Denies fevers, chills, n/v/d. Denies hematuria, dysuria. Physical Exam Vital signs: Vital Signs 03/02/18 14:02 03/02/18 16:19 03/02/18 19:01 Temperature 98.3 F 98.1 F Pulse Rate 118 H 110 H 111 H Respiratory Rate 19 18 18 Blood Pressure 156/94 H 117/56 L 158/93 H Pulse Oximetry 94 L 99 99 03/02/18 20:20 03/02/18 20:32 03/02/18 21:00 Temperature Pulse Rate 99 H 96 H Respiratory Rate 20 15 Blood Pressure 157/100 H 153/94 H Pulse Oximetry 98 98 97 03/02/18 22:00 03/02/18 22:40 03/02/18 23:00 Temperature Pulse Rate 100 H 104 H 98 H Respiratory Rate 18 20 19 Blood Pressure 167/93 H 174/109 H 179/97 H Pulse Oximetry 100 98 97 03/02/18 23:30 03/03/18 00:00 03/03/18 08:00 Temperature Pulse Rate 102 H 99 H 92 H Respiratory Rate 18 20 19 Blood Pressure 152/84 H 141/75 H 156/73 H Pulse Oximetry 98 97 98 03/03/18 08:21 Temperature 97.9 F Pulse Rate 98 H Respiratory Rate Blood Pressure 167/101 H Pulse Oximetry 97 Intake & Output 03/02/18 03/03/18 03/03/18 18:59 06:59 18:59 Weight 108.862 kg Narrative: GENERAL: This is a well-nourished, well-developed patient, in no apparent distress. SKIN: Warm and dry HEENT: Normocephalic. Pupils equal round and reactive. Nose without bleeding. Airway patent. NECK: Trachea midline. CARDIOVASCULAR: Regular rate and rhythm without murmurs, gallops, or rubs. RESPIRATORY: Clear to auscultation. Breath sounds equal bilaterally. No wheezes , rales, or rhonchi. GASTROINTESTINAL: Abdomen soft, non-tender, nondistended. Bowel Sounds normoactive x4. MUSCULOSKELETAL: Extremities without clubbing, cyanosis, or edema. NEUROLOGICAL: Awake and alert. No focal neuro deficit. Moves all extremities. Normal speech. Results - Labs CBC & Chem 7: 03/03/18 06:30 03/03/18 06:30 Laboratory Results - last 24 hr 03/02/18 03/02/18 03/02/18 17:37 17:37 19:02 WBC 6.9 RBC 4.88 Hgb 15.3 Hct 43.8 MCV 89.7 MCH 31.3 MCHC 34.8 RDW 13.2 Plt Count 449 MPV 6.3 L Neut % (Auto) 73.7 H Lymph % (Auto) 14.7 [place] % (Auto) 6.9 Eos % (Auto) 4.1 H Baso % (Auto) 0.6 Neut # (Auto) 5.1 Lymph # (Auto) 1.0 [place] # (Auto) 0.5 Eos # (Auto) 0.3 Baso # (Auto) 0.0 WBC Differential . Differential Comment Auto diff final PT INR APTT Sodium 143 140 Potassium 4.1 4.3 Chloride 106 104 Carbon Dioxide 26.5 24.7 Anion Gap 11 11 BUN 9 9 Creatinine 0.81 0.79 Estimated GFR Greater than 89 Greater than 89 Random Glucose 116 H 134 H Calcium 8.1 L 8.3 L Magnesium Total Bilirubin 0.2 AST 49 H ALT 50 Alkaline Phosphatase 93 Total Creatine Kinase Troponin I 0.03 Total Protein 7.2 Albumin 3.3 L Serum Alcohol 163 H 03/02/18 03/02/18 03/03/18 19:02 19:02 06:30 WBC 6.5 RBC 4.70 Hgb 14.6 Hct 41.7 MCV 88.7 MCH 31.0 MCHC 35.0 RDW 13.5 Plt Count 381 MPV 6.5 L Neut % (Auto) 72.4 H Lymph % (Auto) 13.6 [place] % (Auto) 9.0 H Eos % (Auto) 3.9 Baso % (Auto) 1.1 Neut # (Auto) 4.7 Lymph # (Auto) 0.9 L [place] # (Auto) 0.6 Eos # (Auto) 0.3 Baso # (Auto) 0.1 WBC Differential . Differential Comment Auto diff final PT 10.5 INR 1.0 APTT 26.4 Sodium Potassium Chloride Carbon Dioxide Anion Gap BUN Creatinine Estimated GFR Random Glucose Calcium Magnesium 2.0 Total Bilirubin AST ALT Alkaline Phosphatase Total Creatine Kinase 96 Troponin I Total Protein Albumin Serum Alcohol 03/03/18 06:30 WBC RBC Hgb Hct MCV MCH MCHC RDW Plt Count MPV Neut % (Auto) Lymph % (Auto) [place] % (Auto) Eos % (Auto) Baso % (Auto) Neut # (Auto) Lymph # (Auto) [place] # (Auto) Eos # (Auto) Baso # (Auto) WBC Differential Differential Comment PT INR APTT Sodium 140 Potassium 3.9 Chloride 105 Carbon Dioxide 26.8 Anion Gap 8 BUN 10 Creatinine 0.84 Estimated GFR Greater than 89 Random Glucose 91 Calcium 8.5 Magnesium Total Bilirubin 0.5 AST 39 H ALT 43 Alkaline Phosphatase 89 Total Creatine Kinase Troponin I Total Protein 6.7 Albumin 3.3 L Serum Alcohol - Imaging Impressions Head CT 03/02/18 14:17 CONCLUSION: 1. Negative for an acute process . Shoulder X-Ray 03/02/18 14:17 CONCLUSION: Degenerative changes, no fracture. Chest X-Ray 03/02/18 17:55 CONCLUSION: No acute cardiopulmonary process seen. Assessment and Plan - Plan 62-year-old male with a history of heavy alcohol use, alcohol withdrawal, hypertension, depression, heart block with pacer who presents with mechanical fall while walking up the steps tonight at his house. Status post mechanical fall Left shoulder pain. -Likely secondary to alcohol -CT head on admission negative for acute process. The patient does have a annie on his forehead where he likely hit the steps. -No evidence of syncope. Pacer was interrogated with no arrhythmia noted. -Patient will need to follow-up with primary care for left shoulder pain which is likely rotator cuff injury. States he will follow-up with orthopedic doctor. - Hypertension Tachycardia -on clonidine. CIWA protocol as below. -SBP 150's. HR 80's Alcohol withdrawal -Bilateral shakes on exam. -On CIWA protocol, thiamine -As per nursing, does not meet [place] for Ativan. Start Librium. Discharge patient with Librium taper. -[place] Prescription Drug Monitoring Database has been queried and verified prior to prescribing the controlled substance. Depression. Chronic. No SI. Continue home medication. DVT Prop ambulatory Discharge patient to home Condition on discharge: Improved Cardiac Diet as tolerated Ad Diane activity Rx written: Please See DC summary. Librium Follow-up with primary care physician Code Status: Full Code Discussed Condition With: Patient, nursing Discharge Planning: Plan to DC home today
[2018-03-03 12:30] VITALS: BP 154/89; PULSE 89; TEMP 98.4
--- NOTE | 2018-03-03 16:13 | ECG ---
Date Performed: 03/03/2018 Time Performed: 04:36:03 PTAGE: 62 years EKG: ELECTRONIC VENTRICULAR PACEMAKER Since the previous tracing, no significant change noted AB NORMAL RHYTHM ECG NO PREVIOUS TRACING DOCTOR: Jean-Paul Cash Interpretating Date/Time 03/03/2018 16:11:24
--- NOTE | 2018-03-03 16:13 | ECG ---
Date Performed: 03/02/2018 Time Performed: 17:57:06 PTAGE: 62 years EKG: ELECTRONIC VENTRICULAR PACEMAKER Since the previous tracing, no significant change noted AB NORMAL RHYTHM ECG NO PREVIOUS TRACING DOCTOR: Jean-Paul Cash Interpretating Date/Time 03/03/2018 16:11:11
== END 2018-03-03 13:17 | disposition home or self-care (01) ==
LOC: NEPD 13:45 → NEDA 13:45 → NEDH 03-03 00:32 → NEPHCDU 03-03 08:20
PROVIDERS: ADMIT Hospitalist; ATTEND Hospitalist